=== PATIENT | male | born 1965 | race Caucasian/White ===

== ENCOUNTER 2024-02-17 09:45 | Inpatient (IN) | payer BC ==
[2024-02-17 10:17] LABS: #Basophils 0.04 10x3/uL (0.0-0.2); #Monocytes 0.63 10x3/uL (0.0-1.1); #Neutrophils 6.14 10x3/uL (1.5-8.4); %Basophils 0.5 % (0.0-2.0); %Eosinophils 1.3 % (0.0-6.0); %Lymphocytes 10.8 % (18.0-47.0); %Monocytes 8.1 % (0.0-10.0); %Neutrophils 78.8 % (40.0-75.0); Hematocrit 48.3 % (38.8-50.0); Hemoglobin 16.3 g/dL (13.5-17.5); Mean Corpuscular HGB CONC 33.7 g/dL (32.0-36.0); Mean Corpuscular Hemoglobin 31.2 pg (27.0-33.0); Mean Corpuscular Volume 92.4 fL (81.2-95.1); Mean Platelet Volume 9.7 fL (7.4-10.4); Platelet Count 248 10x3/uL (150-450); RBC Distribution Width 12.8 % (11.5-14.5); Red Blood Cell (RBC) Count 5.23 10x6/uL (4.32-5.72); White Blood Cell (WBC) Count 7.8 10x3/uL (3.5-10.5)
[2024-02-17 10:33] LABS: ALT (SGPT) 39 U/L (8-55); AST (SGOT) 25 U/L (5-34); Alkaline Phosphatase 70 U/L (40-110); Anion Gap 15 mmol/L (10-20); BUN (Urea Nitrogen) 12 mg/dL (8.4-25.7); Bilirubin, Total 1.2 mg/dL (0.2-1.2); Calc. Creatinine Clearance 0 mL/min (70-130); Calcium 9.5 mg/dL (7.8-10.44); Carbon Dioxide 25 mmol/L (22-29); Chloride 103 mmol/L (98-107); Estimated GFR 79; Globulin 3.2 g/dL (2.4-3.5); Glucose 92 mg/dL (70-105); Potassium 4.2 mmol/L (3.5-5.1); Protein, Total 7.2 g/dL (6.0-8.3); Sodium 139 mmol/L (136-145)
[2024-02-17 10:39] LABS: Troponin I Less than 0.010 ng/mL (< 0.028)
[2024-02-17] MEDS ORDERED: Magnevist 469MG/ML 20 ML VIAL ONE (11:11)
[2024-02-17] MEDS ORDERED: Aspirin 81 mg Enteric Coated Tablet ONE (11:58)
[2024-02-17] MEDS ORDERED: Glucagon 1 MG/ML KIT IM PRN (15:18)
[2024-02-17] MEDS ORDERED: Dextrose 5% in Water 1,000 ML IV PRN (15:18)
[2024-02-17] MEDS ORDERED: Ondansetron PF 4 MG/2 ML Vial IVP PRN (15:18)
[2024-02-17] MEDS ORDERED: Acetaminophen 325 MG TAB PO PRN (15:18)
[2024-02-17] MEDS ORDERED: Dextrose 50% Abboject 50 ML SYRINGE SLOW IVP PRN (15:18)
[2024-02-17] MEDS ORDERED: Insulin Lispro 100 UNIT/ML 10 ML VIAL SC PRN ×2 (15:18)
[2024-02-17] MEDS ORDERED: Ondansetron ODT 4 MG TAB PO PRN (15:18)
[2024-02-17 16:29] VITALS: BMI 37.7
[2024-02-17] MEDS: Rosuvastatin 20 MG TAB PO SCH (22:40)
[2024-02-18 04:33] LABS: #Basophils 0.07 10x3/uL (0.0-0.2); #Monocytes 0.89 10x3/uL (0.0-1.1); #Neutrophils 5.44 10x3/uL (1.5-8.4); %Basophils 0.9 % (0.0-2.0); %Eosinophils 2.4 % (0.0-6.0); %Lymphocytes 18.9 % (18.0-47.0); %Monocytes 10.9 % (0.0-10.0); %Neutrophils 66.5 % (40.0-75.0); Hematocrit 42.8 % (38.8-50.0); Hemoglobin 14.5 g/dL (13.5-17.5); Mean Corpuscular HGB CONC 33.9 g/dL (32.0-36.0); Mean Corpuscular Hemoglobin 31.7 pg (27.0-33.0); Mean Corpuscular Volume 93.7 fL (81.2-95.1); Platelet Count 242 10x3/uL (150-450); RBC Distribution Width 13.2 % (11.5-14.5); Red Blood Cell (RBC) Count 4.57 10x6/uL (4.32-5.72); White Blood Cell (WBC) Count 8.2 10x3/uL (3.5-10.5)
[2024-02-18 04:47] LABS: Anion Gap 13 mmol/L (10-20); BUN (Urea Nitrogen) 14 mg/dL (8.4-25.7); Calc. Creatinine Clearance 110 mL/min (70-130); Calcium 8.8 mg/dL (7.8-10.44); Carbon Dioxide 27 mmol/L (22-29); Chloride 105 mmol/L (98-107); Cholesterol 106 mg/dl (< 200 Desired); Estimated GFR 69; Glucose 101 mg/dL (70-105); HDL Cholesterol 35 mg/dL (>60 Neg Risk); LDL Cholesterol, Calculated 59 mg/dL; Potassium 4.2 mmol/L (3.5-5.1); Sodium 141 mmol/L (136-145); Triglycerides 60 mg/dL (Less than 150)
[2024-02-18] MEDS: Enoxaparin 40 MG (0.4 mL) SYRINGE SC SCH (09:21)
[2024-02-18] MEDS: Aspirin 325 mg Enteric Coated Tablet PO SCH (09:21)
[2024-02-18] MEDS: FLU (Fluarix Triv) TS24-25(6MOS UP)/PF 45 MCG/0.5 ML Syringe IM ONE (09:24)
[2024-02-18] MEDS: glipiZIDE 10 MG TAB PO SCH (11:14)
[2024-02-18 12:38] LABS: Hemoglobin A1c 5.3 % (4.0-6.0)
[2024-02-18 16:24] VITALS: BP 150/97; TEMP 97.7
[2024-02-18] MEDS ORDERED: Lisinopril 2.5 MG TAB PO SCH (21:00)
[2024-02-19] MEDS ORDERED: glipiZIDE 10 MG TAB PO SCH (07:30)
== END 2024-02-18 17:11 | disposition short-term general hospital (02) | DRG 66 ==
LOC: CSHERS 09:45 → CSHERHOLD 15:01 → CSHTELE 19:10
PROVIDERS: ADMIT Internal Medicine; ATTEND Internal Medicine
DX: I63.81 Other cerebral infarction due to occlusion or stenosis of small artery (principal); H54.7 Unspecified visual loss; E11.9 Type 2 diabetes mellitus without complications; I10 Essential (primary) hypertension; E78.00 Pure hypercholesterolemia, unspecified; R29.701 NIHSS score 1; F17.220 Nicotine dependence, chewing tobacco, uncomplicated; Z79.899 Other long term (current) drug therapy; Z79.84 Long term (current) use of oral hypoglycemic drugs; Z88.5 Allergy status to narcotic agent; Z79.85 Long-term (current) use of injectable non-insulin antidiabetic drugs
CPT/HCPCS: 36415; 36416; 70450; 70553; 71045; 76376; 80048; 80053; 80061; 83036; 84484; 85025; 86140; 93005; 93306; 93880; J1650